=== PATIENT | female | born 1990 | race Two or more races ===

== ENCOUNTER 2018-10-26 20:18 | Day surgery (SDC) | payer OTHER ==
[~2018-10-26] VITALS: Ht 157.5 cm; Wt 62.9 kg
[~2018-10-26 20:18] MED LIST: DOCU-131 PO; OXYC-302 PO
--- NOTE | 2018-10-26 20:31 | NUR ---
PAIN IN ABD MIDSECTION RADIATING TO RIGHT SIDE. STARTED AT 1600. LMP - 10/07. TOOK OXYCODONE BEFORE COMING. PT C/O NAUSEA. DENIED URINARY SYMPTOMS. MONITORS APPLIED, SIDERAILS UP X2, CALL LIGHT WITHIN REACH, PA AT BEDSIDE FOR EVAL
[2018-10-26] MEDS ORDERED: MORPHINE SULFATE 4 MG/ML, 1ML ONE ×2 (20:38→22:16)
[2018-10-26] MEDS ORDERED: ONDANSETRON 2MG/ML, 2ML ONE (20:39)
[2018-10-26] MEDS: MORPHINE SULFATE 4 MG/ML, 1ML IVPush PRN ×2 (20:46→22:17)
--- NOTE | 2018-10-26 20:47 | NUR ---
IV SITE STARTED, PT MEDICATED PER MAR
[2018-10-26 20:57] LABS: MICROSCOPIC NOT IND
[2018-10-26] MEDS ORDERED: SODIUM CHLORIDE FLUSH 10ML SYR IVF ONE (21:00)
[2018-10-26] MEDS ORDERED: ONDANSETRON 2MG/ML, 2ML IVPush ONE (21:00)
[2018-10-26 21:01] LABS: BASOPHILS % (AUTO) 1 % (0-1); EOSINOPHILS # (AUTO) 0.13 x10^3/uL (0-0.4); EOSINOPHILS % (AUTO) 1 % (1-7); LYMPHOCYTES # (AUTO) 1.86 x10^3/uL (1-3.4); LYMPHOCYTES % (AUTO) 12 % (22-44); MD NO; MEAN CORPUSCULAR HGB CONC 32.1 g/dL (32.4-35.8); MEAN CORPUSCULAR VOLUME 77.8 fL (80-100); MEAN PLATELET VOLUME 8.5 fL (7.4-10.4); MONOCYTES # (AUTO) 0.72 x10^3/uL (0.2-0.8); MONOCYTES % (AUTO) 5 % (2-9); NEUTROPHILS # (AUTO) 12.96 x10^3/uL (1.8-6.8); NEUTROPHILS % (AUTO) 82 % (42-75); PLATELET COUNT 299 x10^3/uL (130-400); RED BLOOD COUNT 5.01 x10^6/uL (3.82-5.3); RED CELL DISTRIBUTION WIDTH 15.1 % (9.6-15.2)
[2018-10-26 21:02] LABS: CULTURE INDICATED? NO
[2018-10-26 21:11] LABS: ALANINE AMINOTRANSFERASE 18 U/L (12-78); ANION GAP 7 mmol/L (5-15); CALCIUM 8.9 mg/dL (8.5-10.1); CHLORIDE 107 mmol/L (98-107); CREATININE 0.72 mg/dL (0.55-1.02)
[2018-10-26 21:16] LABS: ALKALINE PHOSPHATASE 77 U/L (45-117); BILIRUBIN,TOTAL 0.4 mg/dL (0.2-1.0); TOTAL PROTEIN 8.1 g/dL (6.4-8.2)
[2018-10-26] MEDS ORDERED: OMEP40CA6 PO (21:36)
[2018-10-26] MEDS ORDERED: FLUT12AE2 INH (21:36)
[2018-10-26] MEDS ORDERED: FEXO180T72 PO (21:36)
--- NOTE | 2018-10-26 21:36 | NUR ---
PT TO CT
[2018-10-26] MEDS ORDERED: OMNIPAQUE 350 MG/ML, 100ML BOTTLE ONE (21:49)
--- NOTE | 2018-10-26 22:11 | NUR ---
PT UP TO RR WITH STEADY GAIT
[2018-10-26] MEDS ORDERED: CEFOTETAN PMX 1GM/50ML 50 ML IV ONE (22:30)
[2018-10-26] MEDS ORDERED: SODIUM CHLORIDE 0.9% 1,000 ML IV ONE (22:32)
[2018-10-26] MEDS ORDERED: CEFOTETAN PMX 1GM/50ML 50 ML ONE (22:36)
--- NOTE | 2018-10-26 22:50 | NUR ---
IV FLUIDS STARTED, PT RESTING CALMLY, MONITORS IN PLACE, CALL LIGHT WITHIN REACH
[2018-10-26] MEDS ORDERED: ONDANSETRON 2MG/ML, 2ML IVPush PRN (23:00)
[2018-10-26] MEDS ORDERED: MORPHINE SULFATE 4 MG/ML, 1ML IVPush PRN (23:00)
[2018-10-27 01:00] VITALS: BP 124/84
[2018-10-27] MEDS ORDERED: BUPIVACAINE/PF-EPI 0.5% 1:200K ONE (03:06)
[2018-10-27] MEDS ORDERED: BUPIVACAINE/PF-EPI 0.5% 1:200K IM ONE (04:36)
[2018-10-27] MEDS ORDERED: FENTANYL PF 100 MCG/2ML ONE (05:16)
[2018-10-27] MEDS ORDERED: MIDAZOLAM 1 MG/ML, 2ML ONE (05:16)
[2018-10-27] MEDS ORDERED: PROPOFOL 10 MG/ML, 20ML ONE (05:18)
[2018-10-27] MEDS ORDERED: ROCURONIUM 10MG/ML,5ML ONE (05:18)
[2018-10-27] MEDS ORDERED: SUCCINYLCHOLINE 20 MG/ML, 10ML ONE ×2 (05:18→05:30)
[2018-10-27] MEDS ORDERED: DEXAMETHASONE 4 MG/ML, 1ML ONE (05:30)
[2018-10-27] MEDS ORDERED: ONDANSETRON 2MG/ML, 2ML ONE (05:30)
[2018-10-27] MEDS ORDERED: CEFAZOLIN 1,000 MG ONE (05:30)
[2018-10-27] MEDS ORDERED: ESMOLOL 100 MG/10 ML ONE (05:30)
[2018-10-27] MEDS ORDERED: SUGAMMADEX 200 MG/2 ML IVPush ONE (05:30)
[2018-10-27] MEDS ORDERED: OXYcodone 5 MG/5 ML ORAL.SOL UDC ONE (06:28)
[2018-10-27] MEDS ORDERED: MEPERIDINE/PF 25MG/0.5ML IVPush PRN (06:30)
[2018-10-27] MEDS ORDERED: HYDROmorphone 2 MG/ML, 1ML IVPush PRN (06:30)
[2018-10-27] MEDS ORDERED: LORazepam 2 MG/ML, 1ML IVPush PRN (06:30)
[2018-10-27] MEDS ORDERED: ACETAMINOPHEN 325 MG TABLET PO PRN (06:30)
[2018-10-27] MEDS ORDERED: FENTANYL PF 100 MCG/2ML IV PRN (06:30)
[2018-10-27] MEDS ORDERED: ONDANSETRON 2MG/ML, 2ML IV PRN (06:30)
[2018-10-27] MEDS ORDERED: OXYcodone 5 MG/5 ML ORAL.SOL UDC PO PRN ×2 (06:30)
[2018-10-27 06:50] VITALS: BP 125/80
[2018-10-27] MEDS ORDERED: OXYC5TAB3 PO (08:56)
[2018-10-27] MEDS ORDERED: LORATADINE 10 MG TABLET PO SCH (09:00)
[2018-10-27] MEDS ORDERED: FLUTICASONE FUROATE 200MCG/INH INH SCH (09:00)
[2018-10-28] MEDS ORDERED: OMEPRAZOLE 20 MG CAPSULE.DR PO SCH (06:00)
== END 2018-10-27 11:22 | disposition home or self-care (01) ==
LOC: ED 21:42 → EDIP 22:32 → UNDOADMIN 22:32 → EDIP 23:33 → 4NOR 23:33 → OUT 10-27 06:01 → SDC 10-27 06:01 → 4NOR 10-27 11:17 → DCLOUNGE 10-27 11:17 → OUT 10-27 11:22 → UNDODISIN 10-27 11:22
PROVIDERS: ATTEND Student in an Organized Health Care Education/Training Program
DX: K35.30 Acute appendicitis with localized peritonitis, without perforation or gangrene (principal); Z88.8 Allergy status to other drugs, medicaments and biological substances; Z72.89 Other problems related to lifestyle; Z79.899 Other long term (current) drug therapy
CPT/HCPCS: 36415; 44970; 74177; 80053; 81003; 83690; 84703; 85025; 88304; 96374; 96375; 96376; 99285; J0330; J0690; J1100; J2250; J2270; J2405; J2704; J3010; J3490; J7030; Q9967; G0378

== ENCOUNTER 2020-04-30 11:15 | Outpatient (CLI) | payer OTHER, MEDICAID ==
[~2020-04-30] VITALS: Ht 154.9 cm; Wt 77.3 kg
[~2020-04-30 11:15] MED LIST changes: +FEXO180T72 PO; +FLUT12AE2 INH; +OMEP40CA42 PO; -OXYC-302 PO; +OXYC1TAB14 PO; +OXYC5TAB98 PO; +PREN-1 PO
[2020-04-30 11:39] VITALS: BP 129/72
== END 2020-04-30 14:45 | disposition home or self-care (01) ==
LOC: LDOP 11:15
PROVIDERS: ATTEND Obstetrics & Gynecology
DX: O36.8130 Decreased fetal movements, third trimester, not applicable or unspecified (principal); Z3A.32 32 weeks gestation of pregnancy
CPT/HCPCS: 59025; 76819

== ENCOUNTER 2020-05-01 14:35 | Outpatient (CLI) | payer OTHER, MEDICAID ==
[~2020-05-01] VITALS: Ht 154.9 cm; Wt 77.3 kg
[2020-05-01 14:48] VITALS: BP 141/78
== END 2020-05-01 16:05 | disposition home or self-care (01) ==
LOC: LDOP 14:35
PROVIDERS: ATTEND Obstetrics & Gynecology
DX: O36.8130 Decreased fetal movements, third trimester, not applicable or unspecified (principal); Z3A.32 32 weeks gestation of pregnancy
CPT/HCPCS: 59025; 76819

== ENCOUNTER 2020-05-29 14:26 | Outpatient (CLI) | payer OTHER, MEDICAID ==
[2020-05-29 14:59] LABS: BASOPHILS % (AUTO) 1 % (0-1); EOSINOPHILS % (AUTO) 1 % (1-7); LYMPHOCYTES % (AUTO) 19 % (22-44); MEAN CORPUSCULAR HEMOGLOBIN 23.8 pg (27.0-34.8); MEAN CORPUSCULAR HGB CONC 32.6 g/dL (32.4-35.8); MEAN PLATELET VOLUME 8.4 fL (7.4-10.4); MONOCYTES % (AUTO) 7 % (2-9); NEUTROPHILS % (AUTO) 73 % (42-75); PLATELET COUNT 238 x10^3/uL (130-400); RED BLOOD COUNT 4.54 x10^6/uL (3.82-5.3); RED CELL DISTRIBUTION WIDTH 30.8 % (9.6-15.2)
[2020-05-29 15:06] LABS: MICROSCOPIC INDICATED
[2020-05-29 15:10] LABS: ALANINE AMINOTRANSFERASE 18 U/L (12-78); ALBUMIN 2.6 g/dL (3.4-5.0); ANION GAP 10 mmol/L (5-15); CALCIUM 8.4 mg/dL (8.5-10.1); CHLORIDE 110 mmol/L (98-107); CREATININE 0.64 mg/dL (0.55-1.02)
[2020-05-29 15:13] LABS: ALKALINE PHOSPHATASE 156 U/L (45-117); BILIRUBIN,TOTAL 0.2 mg/dL (0.2-1.0); MD MORPH REVIEW ONLY; TOTAL PROTEIN 6.8 g/dL (6.4-8.2)
[2020-05-29 15:14] LABS: BILIRUBIN, DIRECT < 0.1 mg/dL (0.1-0.2)
[2020-05-29 15:51] LABS: ANISOCYTOSIS 2+; TEAR DROPS 1+
[2020-05-29 15:52] LABS: OVALOCYTES 1+
[2020-05-29 15:54] LABS: POLYCHROMASIA 1+
[2020-05-29 15:58] LABS: HYPOCHROMIA 1+; MICROCYTOSIS 1+
[2020-05-29 15:59] LABS: <PLATELET ESTIMATE> ADEQUATE; <PLT MORPHOLOGY> NORMAL PLT MORPH
[2020-05-29 16:12] LABS: CREATININE,URINE RANDOM 99.6 mg/dL
== END 2020-05-29 16:31 | disposition home or self-care (01) ==
LOC: LDOP 14:26
PROVIDERS: ATTEND Obstetrics & Gynecology
DX: O16.3 Unspecified maternal hypertension, third trimester (principal); Z3A.36 36 weeks gestation of pregnancy
CPT/HCPCS: 36415; 59025; 80053; 81001; 82248; 82570; 84156; 84550; 85025